=== PATIENT | female | born 1995 | race Caucasian/White ===

== ENCOUNTER 2022-02-11 09:29 | Outpatient (REF) | payer OTHER, SELFPAY ==
[2022-02-11 11:03] LABS: MANUAL DIFF FLAG NO
[2022-02-11 11:17] LABS: Basophils Absolute Auto 0.1 X10*3/uL (0.0-0.2); Basophils Percent Auto 1.2 % (0-2); Eosinophils Absolute Auto 0.2 X10*3/uL (0.0-0.4); Eosinophils Percent Auto 3.1 % (0-4); Hematocrit 35.6 % (37.0-47.0); Hemoglobin 11.9 g/dl (12.0-16.0); Imm Gran Abs Auto 0.01 X10*3/uL (0.00-0.03); Imm Gran Pct Auto 0.2 % (0.0-0.4); Lymphocytes Absolute Auto 2.4 X10*3/uL (1.2-4.9); Lymphocytes Percent Auto 41.2 % (20-40); Mean Corpuscular HGB Conc 33.4 g/dl (31.0-35.0); Mean Corpuscular Hemoglobin 29.6 pg (27.0-33.0); Mean Corpuscular Volume 88.6 fL (80.0-98.0); Mean Platelet Volume 10.6 fL (9.4-12.3); Monocytes Absolute Auto 0.6 X10*3/uL (0.1-1.2); Monocytes Percent Auto 9.7 % (2-11); Neutrophils Absolute Auto 2.6 x10*3/uL (2.0-8.3); Neutrophils Percent Auto 44.6 % (45-73); Platelet Count 290 X10*3/uL (160-400); Red Blood Count 4.02 X10*6/uL (4.20-5.50); Red Cell Distribution Width 11.9 % (11.0-16.0); White Blood Count 5.9 X10*3/uL (4.8-10.8)
[2022-02-11 12:24] LABS: Alanine Aminotransferase 17 U/L (0-31); Albumin Level 4.3 g/dL (3.5-5.0); Alkaline Phosphatase 36 U/L (39-117); Anion Gap 13 (12-20); Aspartate Amino Transferase 22 U/L (5-31); Bilirubin Total 1.4 mg/dL (0.0-1.0); Blood Urea Nitrogen 10 mg/dL (9-16); Calcium 9.5 mg/dL (8.4-10.2); Carbon Dioxide 24 mmol/L (22-29); Chloride 104 mmol/L (96-108); Estimated Glomerular Filt Rate > 60; Glucose Fasting 85 mg/dL (60-99); Potassium 4.2 mmol/L (3.3-5.1); Sodium 137 mmol/L (135-145); Total Protein 7.4 g/dL (6.5-8.0)
== END 2022-02-11 09:30 | disposition home or self-care (01) ==
LOC: HO.MANLDS 09:29
PROVIDERS: PCP Physician Assistant; Visit Provider Physician Assistant
DX: Z00.00 Encounter for general adult medical examination without abnormal findings (principal)
CPT/HCPCS: 36415; 80053; 85025

== ENCOUNTER 2023-02-15 09:16 | Outpatient (REF) | payer OTHER, SELFPAY ==
[2023-02-15 11:14] LABS: MANUAL DIFF FLAG NO
[2023-02-15 11:33] LABS: Basophils Absolute Auto 0.1 X10*3/uL (0.0-0.2); Basophils Percent Auto 0.9 % (0-2); Eosinophils Absolute Auto 0.3 X10*3/uL (0.0-0.4); Eosinophils Percent Auto 4.8 % (0-4); Hematocrit 35.4 % (37.0-47.0); Imm Gran Abs Auto 0.02 X10*3/uL (0.00-0.03); Imm Gran Pct Auto 0.4 % (0.0-0.4); Lymphocytes Absolute Auto 2.3 X10*3/uL (1.2-4.9); Lymphocytes Percent Auto 41.3 % (20-40); Mean Corpuscular HGB Conc 33.9 g/dl (31.0-35.0); Mean Corpuscular Hemoglobin 29.7 pg (27.0-33.0); Mean Corpuscular Volume 87.6 fL (80.0-98.0); Mean Platelet Volume 10.7 fL (9.4-12.3); Monocytes Absolute Auto 0.4 X10*3/uL (0.1-1.2); Monocytes Percent Auto 7.7 % (2-11); Neutrophils Absolute Auto 2.5 x10*3/uL (2.0-8.3); Neutrophils Percent Auto 44.9 % (45-73); Platelet Count 268 X10*3/uL (160-400); Red Blood Count 4.04 X10*6/uL (4.20-5.50); Red Cell Distribution Width 11.7 % (11.0-16.0); White Blood Count 5.6 X10*3/uL (4.8-10.8)
[2023-02-15 11:47] LABS: Alanine Aminotransferase 16 U/L (0-31); Albumin Level 4.2 g/dL (3.5-5.0); Alkaline Phosphatase 39 U/L (39-117); Anion Gap 10 (12-20); Aspartate Amino Transferase 17 U/L (5-31); Bilirubin Total 1.5 mg/dL (0.0-1.0); Blood Urea Nitrogen 14 mg/dL (9-16); Calcium 9.1 mg/dL (8.4-10.2); Carbon Dioxide 25 mmol/L (22-29); Chloride 108 mmol/L (96-108); Estimated Glomerular Filt Rate > 60; Glucose Random 90 mg/dL (60-115); Potassium 3.8 mmol/L (3.3-5.1); Sodium 139 mmol/L (135-145); Total Protein 6.9 g/dL (6.5-8.0)
== END 2023-02-15 09:17 | disposition home or self-care (01) ==
LOC: HO.MANLDS 09:16
PROVIDERS: Visit Provider Physician Assistant
DX: Z00.00 Encounter for general adult medical examination without abnormal findings (principal); E61.1 Iron deficiency
CPT/HCPCS: 36415; 80053; 85025

== ENCOUNTER 2023-09-14 09:15 | Outpatient (REF) | payer OTHER, SELFPAY ==
[2023-09-14 13:24] LABS: Appearance Urine Turbid; Color Urine Yellow; Glucose Urine UA Negative (Negative); Leukocyte Esterase Urine Negative (Negative); Nitrite Urine Negative (Negative); PH 5.5 (5.0-9.0); Specific Gravity - Urine >= 1.030 (1.005-1.025); Urine Blood Negative (Negative); Urine Ketones Negative (Negative); Urine Protein Trace mg/dL (Neg-Trace)
[2023-09-14 13:30] LABS: Bacteria Urine 2+ (None Seen); Hyaline Casts Urine 0-2 /LPF (0-2); RBC Urine 0-2 /HPF (0-2); WBC Urine 0-5 /HPF (0-5)
== END 2023-09-14 09:16 | disposition home or self-care (01) ==
LOC: HO.MANLDS 09:15
PROVIDERS: Visit Provider Physician Assistant
DX: N39.0 Urinary tract infection, site not specified (principal)
CPT/HCPCS: 81001

== ENCOUNTER 2024-03-14 10:52 | Outpatient (REF) | payer BC, SELFPAY ==
[2024-03-14 13:27] LABS: MANUAL DIFF FLAG NO
[2024-03-14 13:38] LABS: Basophils Absolute Auto 0.1 X10*3/uL (0.0-0.2); Basophils Percent Auto 0.6 % (0-2); Eosinophils Absolute Auto 0.1 X10*3/uL (0.0-0.4); Eosinophils Percent Auto 1.3 % (0-4); Hematocrit 36.6 % (37.0-47.0); Hemoglobin 12.6 g/dl (12.0-16.0); Imm Gran Abs Auto 0.03 X10*3/uL (0.00-0.03); Imm Gran Pct Auto 0.4 % (0.0-0.4); Lymphocytes Absolute Auto 2.7 X10*3/uL (1.2-4.9); Lymphocytes Percent Auto 33.7 % (20-40); Mean Corpuscular HGB Conc 34.4 g/dl (31.0-35.0); Mean Corpuscular Hemoglobin 30.7 pg (27.0-33.0); Mean Corpuscular Volume 89.3 fL (80.0-98.0); Mean Platelet Volume 10.8 fL (9.4-12.3); Monocytes Absolute Auto 0.6 X10*3/uL (0.1-1.2); Monocytes Percent Auto 7.9 % (2-11); Neutrophils Absolute Auto 4.5 x10*3/uL (2.0-8.3); Neutrophils Percent Auto 56.1 % (45-73); Platelet Count 286 X10*3/uL (160-400); Red Cell Distribution Width 11.5 % (11.0-16.0)
[2024-03-14 14:02] LABS: Alanine Aminotransferase 15 U/L (0-31); Albumin Level 4.4 g/dL (3.5-5.0); Alkaline Phosphatase 44 U/L (39-117); Anion Gap 15 (12-20); Aspartate Amino Transferase 17 U/L (5-31); Bilirubin Total 1.2 mg/dL (0.0-1.0); Blood Urea Nitrogen 12 mg/dL (9-16); Calcium 9.6 mg/dL (8.4-10.2); Carbon Dioxide 22 mmol/L (22-29); Chloride 106 mmol/L (96-108); Estimated Glomerular Filt Rate > 60; Glucose Random 86 mg/dL (60-115); Potassium 3.9 mmol/L (3.3-5.1); Sodium 139 mmol/L (135-145); Total Protein 7.9 g/dL (6.5-8.0)
[2024-03-14 14:11] LABS: Free T4 (Free Thyroxine) 0.94 ng/dL (0.71-1.85); Thyroid Stimulating Hormone 0.67 uIU/mL (0.32-4.0); Vitamin D 25-OH Total 63.1 ng/mL (>30)
== END 2024-03-14 10:53 | disposition home or self-care (01) ==
LOC: HO.MANLDS 10:52
PROVIDERS: Visit Provider Physician Assistant
DX: Z00.00 Encounter for general adult medical examination without abnormal findings (principal)
CPT/HCPCS: 36415; 80053; 82306; 84439; 84443; 85025

== ENCOUNTER 2025-05-01 11:35 | Outpatient (REF) | payer BC, SELFPAY ==
[2025-05-01 12:53] LABS: MANUAL DIFF FLAG NO
[2025-05-01 13:07] LABS: Basophils Absolute Auto 0.1 X10*3/uL (0.0-0.2); Basophils Percent Auto 1.1 % (0-2); Eosinophils Absolute Auto 0.2 X10*3/uL (0.0-0.4); Eosinophils Percent Auto 1.9 % (0-4); Hemoglobin 11.9 g/dl (12.0-16.0); Imm Gran Abs Auto 0.02 X10*3/uL (0.00-0.03); Imm Gran Pct Auto 0.2 % (0.0-0.4); Lymphocytes Absolute Auto 3.1 X10*3/uL (1.2-4.9); Lymphocytes Percent Auto 39.2 % (20-40); Mean Corpuscular Hemoglobin 30.9 pg (27.0-33.0); Mean Corpuscular Volume 88.3 fL (80.0-98.0); Mean Platelet Volume 10.5 fL (9.4-12.3); Monocytes Absolute Auto 0.6 X10*3/uL (0.1-1.2); Monocytes Percent Auto 7.4 % (2-11); Neutrophils Percent Auto 50.2 % (45-73); Platelet Count 284 X10*3/uL (160-400); Red Blood Count 3.85 X10*6/uL (4.20-5.50); Red Cell Distribution Width 11.4 % (11.0-16.0)
--- OUTSIDE RECORDS SUMMARY | 2025-05-01 13:19 | XMS_ITS | Continuity of Care Document ---
Author Organization [facility], [facility] Address [address] [place] [address] Assessment No assessment recorded. Plan of Treatment Reminders Order Date Submit Date Provider Last Modified By Organization Details Last Modified Time Details Appointments NEW PROBLEM 15 2024 11:15A KULWANT MEEK Not available Not available Not available FOLLOW UP 2024 11:45A KULWANT MEEK Not available Not available Not available ANNUAL EXAM 2025 09:00A KULWANT MEEK Not available Not available Not available Lab None recorded. Referral None recorded. Procedures None recorded. Surgeries None recorded. Imaging None recorded. Medication Orders escitalop angelina 5 mg tablet 2024 025 [id number], [address], [place], [id number], 05/01/2025 11:28:41 Lo Loestrin Fe 1 mg-10 mcg (24)/10 mcg (2) tablet 2024 025 [facility][id number], [address], [place], [id number], 05/01/2025 11:30:34 lorazepam 0.5 mg tablet 2024 025 [facility] #[id number], [address], [place], [id number], 05/01/2025 11:33:25 Patient TargetsNo targets recorded. Patient InstructionsNo instructions recorded. Reason for Referral None Reported. Problems Name Problem SNOMED Code Status Onset Date Resolution Date Notes Provider Name and Address Organization Details Recorded Time Corneal abrasion 38547228 Active 2020 Not Available [facility] 3 15:02:37 High risk sexual behavior 056880893 Completed 202008/25/2021 KULWANT PARISH [address] [place] [address], [phone], [facility] 1 12:14:54 Gluten sensitiv ity 123015421 Completed 202008/25/2021 KULW[facility] PAR[facility] [address] [place] [address], [phone], [facility] 1 12:07:03 Celiac disease 766338304 Active 2020 Not Available [facility] 3 15:02:37 Acne 75488067 Active 2020 Not Available [facility] 3 15:02:37 Anxiety 28098062 Active 2020 Not Available [facility] 3 15:02:37 Intentio n tremor 38280311 Active 2022 Not Available [facility] 3 15:02:37 Dysuria 74305794 Active 2022 K[facility] [address] [place] [address], [phone], [facility] 3 12:17:34 Acute urinary tract infectio n 036077956 Active 2022 [facility] [address] [place] [address], [phone], [facility] 3 16:51:00 Cyst of skin 663830601 Active 2023 [facility] [address] [place] [address], [address], [facility] 4 11:57:07 Cyst of neck 679413968 Active 2023 K[facility] [address] [place] [address], [phone], [facility] 4 10:07:59 Generali zed anxiety disorder 45716191 Active 2024 K[facility] [address] [place], [address], [facility] 5 11:26:40 Problem Notes None recorded. Medical Equipment None Reported. Allergies Allergen ID Allergen Name Allergen Category Reaction Reaction Severity Criticality Documentation Date Start Date Code Code System Note Provider Name and Address Organization Details Recorded Time 4761 amoxicill in medicatio n facial swelling mild Not available 07/09/2021 723 RxNorm has not had it since a todd er [facility] [address] [place], [address], [facility] 12:06:15 4762 wheat gluten extract food Not available Not available Not available 07/09/2021 67755 81 RxNorm sandra c's [facility] [address] [place], [address], [facility] 12:06:28 Medications Name Sig Start Date Stop Date Status Note LastModified by Organization Details LastModified Time azithromyci n 250 mg tablet 08/25 completed Not Available Not Available Not Available sulfamethox azole 800 mg-trimetho prim 160 mg tablet TAKE 1 TABLET BY MOUTH EVERY 12 HOURS FOR 7 DAYS 02/07 completed Not Available Not Available Not Available lorazepam 0.5 mg tablet TAKE 1 TABLET BY MOUTH TWICE DAILY 2024 active Not Available Not Available Not Avai lable propranolol 20 mg tablet 1 po qd 2023 active Not Available Not Available Not Avai lable ketoconazol e 2 % topical cream APPLY TOPICALLY TO THE AFFECTED AREA DAILY 04/03 completed Not Available Not Available Not Available cefdinir 300 mg capsule 08/25 completed Not Available Not Available Not Available Tri-Sprinte c (28) 0.18 mg(7)/0.215 mg(7)/0.25 mg(7)-0.035 mg tablet TAKE 1 TABLET BY MOUTH EVERY DAY 04/17 completed Not Available Not Available Not Available escitalopra m 5 mg tablet Take 1 tablet every day by oral route as directed for 90 days. 2024 active Not Available Not Available Not Avai lable clindamycin 1.2 % (1 % base)-benzo yl peroxide 5 % topical gel APPLY EVERY NIGHT AT BEDTIME TO ACNE ON FACE 04/03 completed Not Available Not Available Not Available Lo Loestrin Fe 1 mg-10 mcg (24)/10 mcg (2) tablet 1 tablet po qd 2024 active Not Available Not Available Not Avai lable Vitals Date Recorded Body height Body mass index (BMI) Body weight Oxygen saturation Oxygen saturation in Arterial blood by Pulse oximetry Heart rate Systolic blood pressure Diastolic blood pressure Provider Name and Address Organization Details Last Updated DateTime 5 160.02 cm 23.1 kg/m2 02063.1 6 g 99 % 99 % 77 /min 118 mm[Hg] 78 mm[Hg] Verena Tuttle [facility] 5 11:16:00 Social History Question Answer Notes LastModified by [employer] Details LastModified Time Tobacco Smoking Status Never [facility] 07/09/2021 14:54:35 What Is Your Level Of Caffeine Consumption? Moderate Information not available 08/25/2021 Which Illicit Or Recreational Drugs Have You Used? Canabis Information not available 08/25/2021 What Was The Date Of Your Most Recent Tobacco Screening? 05/01/2025 [email or web address] Information not available 05/01/2025 Sex: Unknown Functional Status Question Answer Note LastModified by [employer] Details LastModified Time Do you use any illicit or recreational drugs? Yes [email or web address] Information not available 02/11/2022 Do you or have you ever used any other forms of tobacco or nicotine? No [email or web address] Information not available 02/15/2023 What is your level of alcohol consumption? Occasional Information not available 08/25/2021 What is your exercise level? Moderate Information not available 08/25/2021 Mental Status None recorded. Family History Relationship Description Onset Age of this Age Resolved Age Notes LastModified by Organization Details LastModified Time Father No current problems or disability [email or web address] Not available 08/25 12:09:19 Mother No current problems or disability [email or web address] Not available 08/25 12:09:19 Medical History No medical history recorded. Gynecological HistoryNo gynecological history recorded. Obstetrics History GPAL:G 0 P 0 0 0 0 Immunizations Vaccine Type Date Status Note Provider Nam e and Address Organization Details Recorded Time HPV, unspecified formulation 9 completed Kelli Gencarelle null, [facility] 02/11/2022 09:01:50 HPV, unspecified formulation 9 completed Kelli Gencarelle null, [facility] 02/11/2022 09:01:50 HPV, unspecified formulation 9 completed Kelli Gencarelle null, [facility] 02/11/2022 09:01:50 Hep B, unspecified formulation 8 completed Kelli Gencarelle null, [facility] 02/11/2022 09:01:50 Hep B, unspecified formulation 8 completed Kelli Gencarelle null, [facility] 02/11/2022 09:01:50 Hep B, unspecified formulation 8 completed Kelli Gencarelle null, [facility] 02/11/2022 09:01:50 meningococcal C conjugate 4 completed Kelli Gencarelle null, [facility] 02/11/2022 09:01:50 meningococcal C conjugate 9 completed Kelli Gencarelle null, [facility] 02/11/2022 09:01:50 MMR 9 completed Katie Balicki null, [facility] 07/09/2021 14:47:04 MMR 3 completed Katie Balicki null, [facility] 07/09/2021 14:47:10 Pneumococcal Conjugate, unspecified formulation 0 completed Katie Balicki null, [facility] 07/09/2021 14:47:41 Tdap 9 completed Katie Balnas barker, [facility] 07/09/2021 14:48:09 Tdap 9 completed Katieliliana Pecknas barker, [facility] 07/09/2021 14:48:16 varicella 9 completed Katieliliana Pecknas barker, [facility] 07/09/2021 14:48:39 varicella 9 completed Katieliliana Pecknas barker, [facility] 07/09/2021 14:48:46 Past Encounters Encounter ID Performer Location Encounter Start Date Encounter Closed Date Diagnosis/Indication Diagnosis SNOMED-CT Code Diagnosis ICD10 Code Diagnosis Note [id number] [facility] [address], [place] [address] 04/03/2025 09:02:06 04/03/2025 09:26:20 Active or passive immunization 679643950 Z23 up-to-date General ex amination of patient 815520791 Z00.00 BP is excellent [id number] [facility] [address],[place] [address] 05/01/2025 11:09:44 05/01/2025 12:01:54 Generalized anxiety disorder 85133794 F41.1 adding lexapro Uses oral contraception 4133168 Z30.41 will send referral to gynecologi st Anxiety 09305478 F41.1 stable Depression screening 171 904171 Z13.31 negative positive JACQUELYN-7 score Health Concerns Section Related Observation LastModified by Organization Detai ls LastModified Time None Recorded Concern Status LastModified by Organization Details LastModified Time None Recorded Payers Encounter Date Sequence Insurance Name Policy Number Policy Galicia Covered Member ID Galicia Member ID Guarantor Name 05/01/2025 1 [place] ([facility] [id number] Alex Mcfadden [id number] Alex Mcfadden Notes Date Note Type Note Provider Name a nd Address Organization Details Recorded Time 05/01/2025 text/html c/o anxiety > f/ u from therapist the patient was discussing her anxiety with her therapist The patient presents to the office today for follow-up management of their ongoing depression/anxiety symptoms including easily overwhelmed, anxious and frustrated, difficulty with her racing thoughts and labile mood The patient's symptoms started awhile ago, have just been getting to the point it's less manageable and after consult with therapist she wanted to discuss maintenance medsThe patient endorses:FatigueSl eep changes/insomniaLi ttle pleasure in doing thing they once found enjoyable: isn't motivated for hobbiesless motivation denies brain fog or sleep disturbances The patient endorses extensive worry about work, personal life, healthThe patient also reports easy irritability, difficulty with concentrating or making decisions, restlessnessThis is impacting their life by making it difficulty to complete ADL's normally without sig anxiety or mood changes After discussion patient for different interventions including cognitive behavioral therapy, medications, referral to therapist or psychiatrist the patient has agreed to starting lexapro, 5 mgfu in three weeks [facility] [address] [place] [address], [place], [address], [facility] 05/01/2025 11:37:05 OBGyn Episode No OBEpisode recorded.
[2025-05-01 13:27] LABS: Alanine Aminotransferase 20 U/L (0-31); Albumin Level 4.6 g/dL (3.5-5.0); Alkaline Phosphatase 34 U/L (39-117); Anion Gap 12 (12-20); Aspartate Amino Transferase 23 U/L (5-31); Bilirubin Total 1.3 mg/dL (0.0-1.0); Blood Urea Nitrogen 10 mg/dL (9-16); Carbon Dioxide 24 mmol/L (22-29); Chloride 108 mmol/L (96-108); Estimated Glomerular Filt Rate > 60; Glucose Random 86 mg/dL (60-115); Potassium 3.5 mmol/L (3.3-5.1); Sodium 140 mmol/L (135-145); Total Protein 7.4 g/dL (6.5-8.0)
== END 2025-05-01 11:36 | disposition home or self-care (01) ==
LOC: HO.MANLDS 11:35
PROVIDERS: Visit Provider Physician Assistant
DX: Z00.00 Encounter for general adult medical examination without abnormal findings (principal)
CPT/HCPCS: 36415; 80053; 85025